=== PATIENT | male | born 1950 | race Caucasian/White ===

== ENCOUNTER 2018-07-09 09:30 | Day surgery (SDC) | payer OTHER ==
[~2018-07-09] VITALS: Ht 177.8 cm; Wt 128.0 kg
[~2018-07-09 09:30] MED LIST: AMLO5 PO; CARV25 PO; CEPH500 PO; ELIQUIS5 MG PO; FURO20 PO; GABA600 PO; HYDACE5 PO; METPRE4DP PO; RXHYDACE PO; SPIR25 PO; Valtrex1000 MG PO
== END 2018-07-09 22:42 | disposition home or self-care (01) ==
LOC: MHTC 09:30
DX: I48.4 Atypical atrial flutter (principal)
CPT/HCPCS: 92960; 93005; 93010; J7120

== ENCOUNTER 2019-06-03 07:20 | Day surgery (SDC) | payer OTHER ==
[~2019-06-03] VITALS: Ht 182.9 cm; Wt 120.8 kg
[~2019-06-03 07:20] MED LIST changes: +ESCI20 PO; +GABA300 PO; -GABA600 PO; +METO25ER PO; +Prinivil10 MG PO; +VARE1 PO
[2019-06-03] MEDS ORDERED: PREG25 PO (07:36)
--- NOTE | 2019-06-03 07:53 | NUR ---
Ambulatory in Day SurgeryPatient states colon prep results clear. History, Chart, Medications and Allergies reviewed before start of procedure.RESPIRATIONS SHALLOW-LUNG SOUNDS DISTANT. NO NOTED SOB. SATS>97% ON RA.MURMUR AUSCULTATED. PT HAS NOT HAD ELIQUIS, METOPROLOL, OR LISINOPRIL SINCE LAST MONDAY. HE ADMITS THAT HE IS "REALLY BAD ABOUT TAKING MY MED" IN GENERAL.NPO STATUS CONFIRMED. Patient States Post-Procedure ride home has been arranged.
--- NOTE | 2019-06-03 08:24 | NUR ---
06/03/19 0824 Katherine Menjivar History, Chart, Medications and Allergies reviewed before start of procedure. PATIENT CONFIRMS NPO STATUS AND AGREES WITH SCHEDULED PROCEDURE. MONITOR INTACT WITH CONTINUOUS PULSE OXIMETRY AND INTERMITTENT BP. O2 VIA N/C INTACT THROUGHOUT SEDATION/PROCEDURE. 3-LEAD EKG REVIEWED WITH PHYSICIAN PRIOR TO START OF PROCEDURE. PATIENT DETERMINED TO BE ASA APPROPRIATE FOR PROPOFOL SEDATION PRIOR TO START OF PROCEDURE BY DR. ARMENDARIZ.
--- NOTE | 2019-06-03 08:58 | NUR ---
INTO STEP VIA [facility]. PT A&OX3-DENIES PAIN OR NAUSEA. CLEAR LIQUIDS INITIATED.
--- NOTE | 2019-06-03 09:30 | NUR ---
Patient up to Ambulate independently. Gait steady. Discharge instructions reviewed with patient. Patient verbalizes understanding. Copy given to patient to take home. Discharged via wheelchair to private car for ride home.
== END 2019-06-03 09:30 | disposition home or self-care (01) ==
LOC: ORSCMMR 07:20 → ORD 08:30 → ORSCMMR 09:30
PROVIDERS: Internal Medicine Gastroenterology
PROC: 0DBM8ZX Excision of Descending Colon, Via Natural or Artificial Opening Endoscopic, Diagnostic (ICD-10-PCS; principal; 2019-06-03 08:30)
PROC: 0DBH8ZX Excision of Cecum, Via Natural or Artificial Opening Endoscopic, Diagnostic (ICD-10-PCS; principal; 2019-06-03 08:30)
DX: Z12.11 Encounter for screening for malignant neoplasm of colon (principal); D12.0 Benign neoplasm of cecum; D12.4 Benign neoplasm of descending colon; I48.0 Paroxysmal atrial fibrillation; Z79.01 Long term (current) use of anticoagulants; F32.9 Major depressive disorder, single episode, unspecified; Z79.899 Other long term (current) drug therapy
CPT/HCPCS: 88305; J2704; J7120